=== PATIENT | female | born 1990 | race Caucasian/White ===

== ENCOUNTER 2019-08-27 20:13 | Emergency (ER) | payer BC ==
[~2019-08-27] VITALS: Ht 180.3 cm; Wt 74.8 kg
[2019-08-27 20:25] VITALS: BP 110/67
--- NOTE | 2019-08-27 20:25 | NUR ---
ED Nurse Note: Patient waked in to ER c/o pelvic pain. Reports that she has been experiencing this pain x 1 week and got checked at urgent care couple days ago and was given meds for muscle spasm that helps her but pain gotten worse today. Denies pain while urination nor discharges. Afebrile. VSS. S/o at bedside.
--- NOTE | 2019-08-27 20:35 | NUR ---
ED Nurse Note: ERMD at bedside.
--- NOTE | 2019-08-27 20:52 | Emergency Room Report ---
History of Present Illness General Chief Complaint: Pelvic Pain Source: Patient Present Illness HPI Disclaimer: Please note that this report is being documented using DRAGON technology. This can lead to erroneous entry secondary to incorrect interpretation by the dictating instrument. HPI: Otherwise healthy 28-year-old female presents for evaluation of pelvic pain. Symptoms began abruptly several hours ago with 10/10 sharp stabbing pain in the suprapubic region. Slowly was improving and is currently a 4/10 and more of an ache. Denied any nausea, vomiting, diarrhea, flank pain, fever, chills, chest pain, shortness of breath. Similar episode of pelvic pain 2 weeks ago. She was seen at urgent care had negative labs including urinalysis. She was provided antispasmodics but has not had any recurrence of pain until tonight. Followed up with her PSYCHIATRIC AIDE which confirmed appropriate placement of your IUD, had a pelvic ultrasound without findings of mass, cyst, other pathology. Denies recent discharge, vaginal bleeding. She is in a monogamous relationship. Has not had a regular period since placement of her IUD 8 years ago. She had some dyspareunia area last night during sexual intercourse. They noted pain at the introitus and very tight vaginal canal. 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 No trouble with bowel obstruction since. No other bowel altering surgeries. PMH: Denies PSH: Volvulus with bowel resection Allergies: Denies Social Hx: Denies Allergies: Coded Allergies: No Known Allergies (Unverified , 08/27/19) Patient History Last Menstrual Period: 8 years Now: No : 0 Para: 0 Nursing Documentation-PMH Past Medical History: No Stated History Hx Neurological Problems: Yes - musculoskeletal radha hip sx Physical Exam Vital Signs Date Time Temp Pulse Resp B/P (MAP) Pulse Ox O2 Delivery O2 Flow Rate FiO2 08/27/19 20:17 98.2 55 16 110/67 (81) 97 Room Air General: Awake and alert, no acute distress HEENT: NC/AT. EOMI. Resp: Normal work of breathing Abdomen: Abdomen is soft, nondistended. Mild tenderness to palpation in the suprapubic region and more on the left as opposed to the right side. No rebound. No masses. Skin: Intact. No abrasions, laceration or rash over the exposed skin MSK: Normal tone and bulk. Moving all extremities. No obvious deformity. Neuro: Awake and alert. Mentating appropriately. Medical Decision Making Diagnostic Impression: Primary Impression: Abdominal pain Additional Impression: Constipation ER Course 28-year-old female presents for evaluation of lower pelvic pain now improving. Differential includes was not limited to ovarian cyst, ovarian torsion, uterine mass, UTI, pyelonephritis, constipation, bowel obstruction, spasticity, dislodgment of IUD. Will obtain a flat plate as I believe constipation is likely in the setting of recent unremarkable pelvic ultrasound and pelvic exam by her PSYCHIATRIC AIDE. No signs of infection, no symptoms of urinary tract infection. Will advance work-up as needed. Patient declined pain medication at this time. Vital signs are stable and she is well-appearing. Other X-Ray Diagnostic Results Other X-Ray Diagnostic Results : X-Ray ordered: KUB # of Views/Limited Vs Complete: 1 View Indication: Pain Interpretation: nonspecific bowel gas, no sbo, other - Constipation Impression: Other - Constipation Electronically Signed by: Electronically signed by Dr. Rayshawn Fall Reevaluation Time: 21:19 Last Vital Signs Date Time Temp Pulse Resp B/P (MAP) Pulse Ox O2 Delivery O2 Flow Rate FiO2 08/27/19 20:25 98.2 55 16 110/67 97 Room Air Reevaluation Impression No evidence of volvulus or obstruction. The patient has a significant stool burden which may be causing her pelvic pain. At this time her pain continues to improve. No acute distress with stable vital signs. Given her recent work- up I do not see an indication for emergent labs or advanced imaging at this time. The patient agrees and would prefer to defer CT and increased radiation load and try conservative measures as an outpatient. Will be discharged with a bowel regimen and enema to perform at home. She continues to pass gas and small amounts of stool so the patient is not impacted at this time. We will try conservative outpatient follow-up with PMD, PSYCHIATRIC AIDE and GI as needed. We discussed reasons to return to the emergency department. She understands and agrees with this treatment plan. Disposition: HOME, SELF-CARE Condition: Stable Scripts Na Phos,M-B/Na Phos,Di-Ba* (FLEET ENEMA*) 133 Ml Enema 133 ML RECTAL DAILY for 1 Day, #133 ML 0 Refills Prov: Rayshawn Fall MD 08/27/19 Polyethylene Glycol 1000 (POLYETHYLENE GLYCOL) 500 Gm Powder 50 GM MC BID for 2 Days, #500 GM Prov: Rayshawn Fall MD 08/27/19 Bisacodyl* (DULCOLAX*) 5 Mg Tablet. 20 MG ORAL ONCE, #10 TAB 0 Refills Prov: Rayshawn Fall MD 08/27/19 Rayshawn Fall MD Aug 27, 2019 20:52
--- NOTE | 2019-08-27 20:52 | NUR ---
ED Nurse Note: Xray at bedside.
[2019-08-27] MEDS ORDERED: BISACODYL5 MG ORAL (21:20)
[2019-08-27] MEDS ORDERED: POLYETHYLENE G500 GM MC (21:20)
[2019-08-27] MEDS ORDERED: FLEET ENEMA133 ML RECTAL (21:20)
[2019-08-27 21:30] VITALS: BP 110/67
--- NOTE | 2019-08-27 21:30 | NUR ---
ED Nurse Note: Pt cleared by ERMD for discharge. DC instructions/prescription was given and explained to pt and verbalized understanding of teachings. All medical deviecs such as ID band removed. Pt is AAO x4, ambulatory and left with all personal belongings. Accompanied by s/o.
--- NOTE | 2019-08-28 11:45 | Diagnostic Imaging Report ---
Indication: Abdominal pain Technique: Supine view of the abdomen Comparison: none Findings: Unremarkable bowel gas pattern. There is an intrauterine device in place. The bones are unremarkable Impression: No acute process
== END 2019-08-27 21:30 | disposition home or self-care (01) ==
LOC: EMR 20:54
DX: R10.2 Pelvic and perineal pain (principal); K59.00 Constipation, unspecified; Z97.5 Presence of (intrauterine) contraceptive device
CPT/HCPCS: 74018; 99283